=== PATIENT | male | born 1980 | race Caucasian/White ===

== ENCOUNTER 2019-10-27 14:34 | Emergency (ER) | payer BC ==
[2019-10-27] MEDS ORDERED: Sodium Chloride 0.9% 10 ML Syringe FLUSH PRN (14:47)
[2019-10-27] MEDS ORDERED: Aspirin 81 MG Tab.Chew PO ONE (14:47)
[2019-10-27] MEDS ORDERED: Sodium Chloride 0.9% 2.5 ML Syringe FLUSH PRN (14:47)
--- NOTE | 2019-10-27 14:51 | EDM.PDOC ---
<Newton Alvarez E - Last Filed: 10/27/19 16:10> ED HPI GENERAL MEDICAL PROBLEM - General Chief Complaint: Cardiovascular Problem Stated Complaint: TROUBLE BREATHING,HEARTS RACING Time Seen by Provider: 10/27/19 14:42 Source of Information: Reports: Patient History Limitations: Reports: No Limitations - History of Present Illness INITIAL COMMENTS - FREE TEXT/NARRATIVE: HISTORY AND PHYSICAL: History of present illness: Patient is a 38-year-old male who presents to the emergency room with complaints of shortness of breath, sinus congestion, chest pain and diaphoresis. He states he woke up this morning around 10am with midsternal/left-sided chest pain and sinus congestion. He states he feels "so congested" that he is unable to take in full breaths. SOB and chest pain is slightly worsened with physical activity. Feels diaphoretic but "I'm always sweaty I guess". He is a 2 pack/day smoker, states smoking cigarettes seems to help alleviate his discomfort. He has not seen a primary care provider or had any type of physical evaluation in over 5+ years. He believes he has had borderline high blood pressure although has never been on any medications. States he is otherwise healthy. 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 He does not have much interaction/exposures to other people -no concern for COVID-19. Patient denies any fever, chills, headache, change in vision, syncope or near syncope. Denies any back pain, abdominal pain, nausea, vomiting, diarrhea, constipation or dysuria. Has not noted any blood in urine or stool. Patient has been eating and drinking appropriately. Patient's father had heart disease diagnosed at 60, at 72 from DM complications. Review of systems: As per history of present illness and below otherwise all systems reviewed and negative. Past medical history: As per history of present illness and as reviewed below otherwise noncontributory. Surgical history: As per history of present illness and as reviewed below otherwise noncontributory. Social history: See social history for further information Family history: As per history of present illness and as reviewed below otherwise noncont ributory. Physical exam: General: Well developed and well nourished. Alert and orientated x 3. Nontoxic in appearance and in no acute distress. Vital signs are stable and have been reviewed by me. Nursing notes were reviewed. HEENT: Atraumatic, normocephalic, pupils equal and reactive bilaterally, negative for conjunctival pallor or scleral icterus, mucous membranes moist, trachea midline. No drooling or trismus noted. No meningeal signs. No hot potato voice noted. Lungs: Clear to auscultation, breath sounds equal bilaterally, chest nontender. Normal work of breathing, no accessory muscles used. Heart: S1S2, regular rate and rhythm without overt murmur Abdomen: Soft, obese, nontender. Negative for masses or hepatosplenomegaly. Negative for costovertebral tenderness. Pelvis: Stable nontender. Skin: Intact, warm, dry. No lesions or rashes noted. Hematologic: No petechiae or purpra. Mucosa appropriate color and normal nail bed color and refill. Extremities: Atraumatic, moves all extremities per self without difficulty or deficits, negative for cords or calf pain. Neurovascular unremarkable. Neuro: Awake, alert, oriented. Cranial nerves II through XII unremarkable. Cerebellum unremarkable. Motor and sensory unremarkable throughout. Exam nonfocal. Notes: Patient's blood pressure is moderately elevated. Upon arrival I did have involved in this case. Heart Score 3; low risk. EKG G shows a right bundle branch block with a rate of 99. Lab work is unremarkable. Chest x-ray shows no acute findings. Diagnostics: CBC, CMP, Troponin, EKG, CXR, BNP, TSH Therapeutics: Amlodipine, normal saline, aspirin Prescription: Amlodipine Impression: Unmanaged hypertension Plan: 1. Today your lab work was normal. Chest x-ray showed no acute findings. Your blood pressure was quite high and will require further treatment. Today you have been started on amlodipine. You are to take this once a day. Please follow-up with your primary care provider as we should see if the dosing you are on is adequate and you will need further refills. 2. If you are able, please check your blood pressure once a day keep a log of this. Bring it to your follow-up appointment that I would like you to have in the next 1 to 2 weeks. 3. If your symptoms should worsen, new symptoms develop or any of the signs and symptoms we discussed should arise please return to the emergency room or call 911 (if needed). Definitive disposition and diagnosis as appropriate pending reevaluation and review of above. Nose Pain Score (Numeric/FACES): 10 - Related Data Allergies Allergy/AdvReac Type Severity Reaction Status Date / Time No Known Allergies Allergy Verified 10/27/19 14:41 Home Meds: Home Meds amLODIPine Besylate [Amlodipine Besylate] 10 mg PO DAILY 30 Days #30 tablet 10/27/19 [Rx] Departure - Departure Disposition: Home, Self-Care 01 Clinical Impression: HTN (hypertension) Qualifiers: Hypertension type: unspecified Qualified Code(s): I10 - Essential (primary) hypertension Prescriptions: amLODIPine Besylate [Amlodipine Besylate] 10 mg PO DAILY 30 Days #30 tablet Forms: ED Department Discharge Additional Instructions: The following information is given to patients seen in the emergency department who are being discharged to home. This information is to outline your options for follow-up care. We provide all patients seen in our emergency department with a follow-up referral. The need for follow-up, as well as the timing and circumstances, are variable depending upon the specifics of your emergency department visit. If you don't have a primary care physician on staff, we will provide you with a referral. We always advise you to contact your personal physician following an emergency department visit to inform them of the circumstance of the visit and for follow-up with them and/or the need for any referrals to a consulting tanner alvarez. The emergency department will also refer you to a specialist when appropriate. This referral assures that you have the opportunity for follow-up care with a specialist. All of these measure are taken in an effort to provide you with optimal care, which includes your follow-up. Under all circumstances we always encourage you to contact your private physician who remains a resource for coordinating your care. When calling for follow-up care, please make the office aware that this follow-up is from your recent emergency room visit. If for any reason you are refused follow-up, please contact the [facility] Emergency Department at and asked to speak to the emergency department charge nurse. 1. You must see primary care for evaluation and treatment of your elevated blood pressure. Call the [facility] clinic at the number listed above. The clinic has been alerted that you were seen in the emergency room. 2. It is possible that your sinus and nasal fullness related to allergies/infection carried by your pet bird. Please have your primary provider further evaluate. 3. You are taking your blood pressure medication which is amlodipine 10 mg daily. Keep a blood pressure record by taking your blood pressure once daily. Take the record with you to your primary care appointment. <Deirdre Owen Kathy - Last Filed: 10/27/19 19:01> ED ROS GENERAL - Review of Systems Review Of Systems: Comprehensive ROS is negative, except as noted in HPI. ED EXAM, GENERAL - Physical Exam Exam: See Below Course - Vital Signs Last Recorded V/S: Last Vital Signs Temp 36.2 C 10/27/19 14:43 Pulse 96 10/27/19 17:03 Resp 18 10/27/19 17:03 BP 173/119 H 10/27/19 17:03 Pulse Ox 96 10/27/19 17:03 - Orders/Labs/Meds Orders: Active Orders 24 hr Category Date Time Status EKG Documentation Completion [RC] STAT Care 10/27/19 14:47 Active Sodium Chloride 0.9% [Saline Flush] Med 10/27/19 14:47 Active 10 ml FLUSH ASDIRECTED PRN Sodium Chloride 0.9% [Saline Flush] Med 10/27/19 14:47 Active 2.5 ml FLUSH ASDIRECTED PRN Saline Lock Insert [OM.PC] Stat Oth 10/27/19 14:47 Ordered Medication Orders Sodium Chloride (Saline Flush) 10 ml FLUSH ASDIRECTED PRN PRN Reason: Keep Vein Open Last Admin: 10/27/19 14:53 Dose: 10 ml Documented by: KB Sodium Chloride (Saline Flush) 2.5 ml FLUSH ASDIRECTED PRN PRN Reason: Keep Vein Open Last Admin: 10/27/19 14:53 Dose: 2.5 ml Documented by: KB Labs: Laboratory Tests 10/27/19 10/27/19 10/27/19 Range/Units 14:40 14:40 14:40 WBC 7.22 (4.0-11.0) K/uL RBC 5.03 (4.50-5.90) M/uL Hgb 17.6 H (13.0-17.0) g/dL Hct 50.1 H (38.0-50.0) % MCV 99.6 H (80.0-98.0) fL MCH 35.0 H (27.0-32.0) pg MCHC 35.1 (31.0-37.0) g/dL RDW Std Deviation 44.0 (28.0-62.0) fl RDW Coeff of Kari 12 (11.0-15.0) % Plt Count 346 (150-400) K/uL MPV 9.50 (7.40-12.00) fL Neut % (Auto) 45.3 L (48.0-80.0) % Lymph % (Auto) 38.4 (16.0-40.0) % Travis % (Auto) 11.8 (0.0-15.0) % Eos % (Auto) 2.8 (0.0-7.0) % Baso % (Auto) 1.7 H (0.0-1.5) % Neut # (Auto) 3.3 (1.4-5.7) K/uL Lymph # (Auto) 2.8 H (0.6-2.4) K/uL Travis # (Auto) 0.9 H (0.0-0.8) K/uL Eos # (Auto) 0.2 (0.0-0.7) K/uL Baso # (Auto) 0.1 (0.0-0.1) K/uL Nucleated RBC % 0.0 /100WBC Nucleated RBCs # 0 K/uL D-Dimer, Quantitative < 0.19 (0.0-0.50) mg/L FEU Sodium 136 (136-148) mmol/L Potassium 3.9 (3.5-5.1) mmol/L Chloride 100 (98-107) mmol/L Carbon Dioxide 26.7 (21.0-32.0) mmol/L BUN 11 (7.0-18.0) mg/dL Creatinine 1.2 (0.8-1.3) mg/dL Est Cr Clr Drug Dosing 93.41 mL/min Estimated GFR (MDRD) > 60.0 ml/min Glucose 128 H (74-106) mg/dL Calcium 8.8 (8.5-10.1) mg/dL Total Bilirubin 0.7 (0.2-1.0) mg/dL AST 31 (15-37) IU/L ALT 67 H (14-63) IU/L Alkaline Phosphatase 82 (46-116) U/L Troponin I < 0.050 (0.000-0.056) ng/mL B-Natriuretic Peptide (<100) PG/ML Total Protein 8.1 (6.4-8.2) g/dL Albumin 4.4 (3.4-5.0) g/dL Globulin 3.7 (2.6-4.0) g/dL Albumin/Globulin Ratio 1.2 (0.9-1.6) TSH 3rd Generation 2.28 (0.36-3.74) uIU/mL 10/27/19 10/27/19 Range/Units 14:40 17:39 WBC (4.0-11.0) K/uL RBC (4.50-5.90) M/uL Hgb (13.0-17.0) g/dL Hct (38.0-50.0) % MCV (80.0-98.0) fL MCH (27.0-32.0) pg MCHC (31.0-37.0) g/dL RDW Std Deviation (28.0-62.0) fl RDW Coeff of Kari (11.0-15.0) % Plt Count (150-400) K/uL MPV (7.40-12.00) fL Neut % (Auto) (48.0-80.0) % Lymph % (Auto) (16.0-40.0) % Travis % (Auto) (0.0-15.0) % Eos % (Auto) (0.0-7.0) % Baso % (Auto) (0.0-1.5) % Neut # (Auto) (1.4-5.7) K/uL Lymph # (Auto) (0.6-2.4) K/uL Travis # (Auto) (0.0-0.8) K/uL Eos # (Auto) (0.0-0.7) K/uL Baso # (Auto) (0.0-0.1) K/uL Nucleated RBC % /100WBC Nucleated RBCs # K/uL D-Dimer, Quantitative (0.0-0.50) mg/L FEU Sodium (136-148) mmol/L Potassium (3.5-5.1) mmol/L Chloride (98-107) mmol/L Carbon Dioxide (21.0-32.0) mmol/L BUN (7.0-18.0) mg/dL Creatinine (0.8-1.3) mg/dL Est Cr Clr Drug Dosing mL/min Estimated GFR (MDRD) ml/min Glucose (74-106) mg/dL Calcium (8.5-10.1) mg/dL Total Bilirubin (0.2-1.0) mg/dL AST (15-37) IU/L ALT (14-63) IU/L Alkaline Phosphatase (46-116) U/L Troponin I < 0.050 (0.000-0.056) ng/mL B-Natriuretic Peptide 7 (<100) PG/ML Total Protein (6.4-8.2) g/dL Albumin (3.4-5.0) g/dL Globulin (2.6-4.0) g/dL Albumin/Globulin Ratio (0.9-1.6) TSH 3rd Generation (0.36-3.74) uIU/mL Meds: Medications Generic Name Dose Route Start Last Admin Trade Name Freq PRN Reason Stop Dose Admin Sodium Chloride 10 ml 10/27/19 14:47 10/27/19 14:53 Saline Flush FLUSH 10 ml ASDIRECTED PRN Administration Keep Vein Open Sodium Chloride 2.5 ml 10/27/19 14:47 10/27/19 14:53 Saline Flush FLUSH 2.5 ml ASDIRECTED PRN Administration Keep Vein Open Discontinued Medications Generic Name Dose Route Start Last Admin Trade Name Freq PRN Reason Stop Dose Admin Amlodipine Besylate 5 mg 10/27/19 15:37 10/27/19 16:57 Norvasc PO 10/27/19 15:38 5 mg ONETIME ONE Administration Aspirin 324 mg 10/27/19 14:47 10/27/19 14:52 Aspirin PO 10/27/19 14:48 324 mg ONETIME ONE Administration Sodium Chloride 1,000 mls @ 999 mls/hr 10/27/19 15:24 10/27/19 16:49 Normal Saline IV 10/27/19 16:24 999 mls/hr STAT ONE Administration - Re-Assessments/Exams Free Text/Narrative Re-Assessment/Exam: 10/27/19 18:51 Discussion with the patient. He states he has no pain just fullness and congestion in his nose and sinuses. He now reveals that he would like a note saying that he is allergic to his bird. He states he lives in a cam[place] and his keeps a bird as a pet. Ever since they got the bird he has had this trouble with his fullness in sinuses. Departure - Departure Time of Disposition: 18:53 Condition: Good Sepsis Event Note (ED) - Focused Exam Vital Signs: Vital Signs Temp Pulse Resp BP BP Pulse Ox 10/27/19 17:03 96 18 173/119 H 96 10/27/19 16:57 173/119 H 10/27/19 14:43 36.2 C 101 H 20 220/135 H 98
[2019-10-27 15:20] LABS: BLOOD UREA NITROGEN,BUN 11 mg/dL (7.0-18.0); CARBON DIOXIDE,CO2 26.7 mmol/L (21.0-32.0); CHLORIDE,CL 100 mmol/L (98-107); GLUCOSE RANDOM 128 mg/dL (74-106); POTASSIUM,K 3.9 mmol/L (3.5-5.1); SODIUM,NA 136 mmol/L (136-148)
--- NOTE | 2019-10-27 15:20 | PCM.SN.2 ---
- Free Text/Narrative Note: The patient was presented to me by the mid-level provider, who sees patients independently as a licensed independent practitioner by [facility] and [facility] law. Up until the time that I was consulted and assumed supervision, the mid-level provider had been solely and independently caring for this patient and they were responsible for all aspects of care including performing the history and physical, formulating medical decision making, ordering medications, and ordering and evaluating testing. I have personally and independently seen and evaluated the patient at bedside and, if available, have spoken with the with the family. I agree with the history, physical, medical decision making, and plan of treatment as documented by the mid-level provider. I have performed the medical decision making for this patient, including assessing the results of all diagnostic testing and I have instructed the mid-level provider to document the results and carry through with the treatment plan that I deemed appropriate. If needed, any other comments, a focused physical examination, or my own medical decision making are documented below. In brief, this is a 38-year-old male with no past medical history presenting with chest discomfort, shortness of breath, and nasal congestion. Reports the onset of left-sided chest discomfort described as "pressure" around 10:00 this morning when he woke up. Nonradiating, nothing makes it better or worse, not pleuritic. Not associated with emesis, vomiting, no history of exertional chest discomfort or shortness of breath. Patient is hypertensive at triage, does smoke tobacco products, and there is a family history of premature CAD. No historical risk factors for pulmonary embolism. No recent fever, cough, hemoptysis. Did take some Mucinex and Claritin-D prior to arrival for nasal congestion. I reviewed the twelve-lead EKG which shows sinus rhythm with a right bundle branch block and left anterior fascicular block but no acute ischemic changes. We will plan for labs, repeat 3-hour troponin and ECG. Given full dose aspirin. Low suspicion for thoracic aortic dissection this time, no pulse deficits, no significant difference in blood pressure between left and right upper extremities. Strong radial pulses bilaterally. Repeat troponin (3-hr delta) also negative. Repeat 3-hr ECG shows no changes compared to initial, no pattern of evolving ischemia. Pain improving. D-dimer negative. CXR clear. HEART score 3 with negative work-up. Low suspicion for PE given negative D-dimer, low suspicion for aortic dissection given equal radial pulses, no significant difference in BPs between upper extremities. No history of repeated vomiting for esophageal rupture, no h/o chest wall trauma. No fever, infiltrates, or infectious symptoms for PNA. Did order some PO amlodipine for HTN, BP improved afterwards. Given negative work-up and well appearance, stable to DC home w/close PMD follow-up. Has not had a physical in years and I recommended a thorough primary care appointment. Will start on PO amlodipine to control HTN in the interim. All questions answered prior to departure. Discharged in good condition.
[2019-10-27] MEDS ORDERED: Sodium Chloride 0.9% 1,000 ML IV ONE (15:24)
[2019-10-27] MEDS ORDERED: amLODIPine 5 MG Tab PO ONE (15:37)
--- NOTE | 2019-10-27 16:06 | CR ---
Chest: 2 views of the chest were obtained. Comparison: No previous chest imaging. Heart size and mediastinum are normal. Lungs are clear with no acute parenchymal change. Bony structures appear within normal limits for the patient's age. Impression: 1. Nothing acute is seen on 2 view chest x-ray. Diagnostic code #1 This report was dictated in MDT
== END 2019-10-27 19:12 | disposition home or self-care (01) ==
LOC: MW.ED 14:34
DX: I10 Essential (primary) hypertension (principal); Z79.899 Other long term (current) drug therapy
CPT/HCPCS: 36415; 71046; 80053; 83880; 84443; 84484; 85025; 85379; 93005; 96360; 99285; A9270; J7030

== ENCOUNTER 2022-11-10 14:05 | Emergency (ER) | payer BC | END 2022-11-10 16:32 | disposition home or self-care (01) | LOC: MW.ED 14:05 | DX: M25.532 Pain in left wrist (principal); M79.642 Pain in left hand; I10 Essential (primary) hypertension; Z79.899 Other long term (current) drug therapy | CPT/HCPCS: 73090-26-LT; 73090-LT; 73110-26-LT; 73110-LT; 73130-26-LT; 73130-LT; 99283 ==